=== PATIENT | male | born 1960 | race African-American/Black ===

== ENCOUNTER 2019-03-23 14:30 | Inpatient (IN) ==
[2019-03-23] MEDS ORDERED: VANCOMYCIN INJ 1,500 MG in SODIUM CHLORIDE 0.9% 250 ML IV STA (15:10)
[2019-03-23 15:44] LABS: Basophils % 0.4 % (0.0-0.8); Eosinophils % 0.4 % (0.00-10.9); Hematocrit 41.1 VOL% (42.0-52.0); Immature Granulocytes % 0.5 %; Immature Granulocytes Absolute 0.05 #; Lymphocytes # 1.7 10*3/uL (1.4-4.0); Lymphocytes % 17.3 % (21.2-54.2); Mean Corpuscular HGB Conc 31.6 GM/DL (32-36); Mean Corpuscular Volume 85.1 FL (87-102); Mean Platelet Volume 10.8 FL (9.6-12.0); Monocytes % 7.8 % (1.7-12.7); Neutrophils % 73.6 % (38.7-73.9); Platelet Count 236 T/CUMM (130-400); Red Blood Count 4.83 MC/CUMM (3.8-5.5); Red Cell Distribution Width 13.5 % (9.3-17.3); White Blood Count 9.8 T/CUMM (4-12)
[2019-03-23 16:02] LABS: Apearance,Urine CLEAR (Clear); Bilirubin,Urine Negative (Negative); Blood, Urine Negative (Negative); Glucose,Urine (UA) Negative (Negative); Ketones,Urine Negative (Negative); Mucus,Urine Occasional /LPF (Occasional); Nitrite,Urine Negative (Negative); Protein,Urine >=500 MG/DL; RBC,Urine 1 /HPF (0-4); Squamous Epithelial Cell,Urine Occasional /HPF (0-10); Urine Color Yellow (Yellow); Urine Specific Gravity 1.014 (1.001-1.035); Urine Urobilinogen < 2.0 EU/DL (0.2-1.0); WBC,Urine 1 /HPF (0-6)
[2019-03-23] MEDS ORDERED: GLUCAGON 1 MG VIAL IM PRN (16:11)
[2019-03-23] MEDS ORDERED: DEXTROSE 10% 250 ML BAG IV PRN (16:11)
[2019-03-23] MEDS ORDERED: ONDANSETRON 4 MG/2 ML VIAL IV PRN (16:11)
[2019-03-23 16:19] LABS: Albumin 3.3 G/DL (3.4-5.0); Bilirubin,Total 1.3 MG/DL (0.2-1.0); Calcium 8.8 MG/DL (8.5-10.1); Total Protein 8.1 G/DL (6.4-8.3)
[2019-03-23] MEDS ORDERED: HYDROmorphone 2 MG/1 ML VIAL IV STA (17:12)
[2019-03-23] MEDS ORDERED: hydrALAZINE 20 MG/1 ML VIAL IV STA (17:13)
[2019-03-23] MEDS: SODIUM CHLORIDE 0.9% 1,000 ML IV SCH (17:30)
[2019-03-23] MEDS: INSULIN LISPRO 100 UNIT/ML SUBCUT SCH ×2 (18:38→21:00)
[2019-03-23] MEDS: ENOXAPARIN 40 MG/0.4 ML SYRINGE SUBCUT SCH (20:42)
[2019-03-24] MEDS: SODIUM CHLORIDE 0.9% 1,000 ML IV SCH (04:31)
[2019-03-24 06:14] LABS: Basophils % 0.3 % (0.0-0.8); Eosinophils % 0.7 % (0.00-10.9); Hemoglobin 11.4 GM/DL (14.0-18.0); Immature Granulocytes % 0.3 %; Immature Granulocytes Absolute 0.02 #; Lymphocytes # 1.1 10*3/uL (1.4-4.0); Lymphocytes % 18.3 % (21.2-54.2); Mean Corpuscular HGB Conc 31.7 GM/DL (32-36); Mean Corpuscular Volume 85.5 FL (87-102); Mean Platelet Volume 11.3 FL (9.6-12.0); Monocytes % 11.6 % (1.7-12.7); Neutrophils % 68.8 % (38.7-73.9); Platelet Count 195 T/CUMM (130-400); Red Blood Count 4.21 MC/CUMM (3.8-5.5); Red Cell Distribution Width 13.5 % (9.3-17.3); White Blood Count 6.1 T/CUMM (4-12)
[2019-03-24 06:45] LABS: Albumin 2.6 G/DL (3.4-5.0); Bilirubin,Total 0.9 MG/DL (0.2-1.0); Calcium 8.3 MG/DL (8.5-10.1); Osmolality,Calculated 297.4 MOS/KG (273-304); Risk Ratio 3.11; Thyroid Stimulating Hormone 1.96 uIU/ml (0.358-3.74); Total Protein 6.6 G/DL (6.4-8.3); VLDL CHOLESTEROL 27.4 MG/DL
[2019-03-24] MEDS ORDERED: PANTOPRAZOLE 40 MG TABLET PO SCH (09:00)
[2019-03-24] MEDS: INSULIN LISPRO 100 UNIT/ML SUBCUT SCH ×4 (09:08→20:41)
[2019-03-24] MEDS ORDERED: SKIN HEALING OINT (AQUAPHOR) 50 GM TUBE TOP PRN (14:16)
[2019-03-24] MEDS: cefTRIAXone 2,000 MG in SYRINGE 1 EACH IV SCH ×2 (18:02→18:13)
[2019-03-24] MEDS: VANCOMYCIN INJ 1,500 MG in SODIUM CHLORIDE 0.9% 500 ML IV SCH (18:02)
[2019-03-24] MEDS: carvediloL 6.25 MG TABLET PO SCH (20:39)
[2019-03-24] MEDS: SODIUM CHLORIDE 0.45% 1,000 ML IV SCH (20:39)
[2019-03-24] MEDS: ROSUVASTATIN 20 MG TABLET PO SCH (20:40)
[2019-03-24] MEDS: ENOXAPARIN 40 MG/0.4 ML SYRINGE SUBCUT SCH (20:40)
[2019-03-24] MEDS: PREGABALIN 100 MG CAPSULE PO PRN (20:40)
[2019-03-24] MEDS: INSULIN GLARGINE 100 UNIT/ML SUBCUT SCH (20:41)
[2019-03-25] MEDS: carvediloL 6.25 MG TABLET PO SCH ×2 (05:47→12:16)
[2019-03-25] MEDS: GLIMEPIRIDE 4 MG TABLET PO SCH ×2 (05:47→12:16)
[2019-03-25] MEDS: ALLOPURINOL 100 MG TABLET PO SCH (05:47)
[2019-03-25] MEDS: amLODIPine 5 MG TABLET PO SCH (05:47)
[2019-03-25] MEDS: PANTOPRAZOLE 40 MG TABLET PO SCH (05:47)
[2019-03-25] MEDS: SODIUM CHLORIDE 0.45% 1,000 ML IV SCH ×2 (05:47→17:20)
[2019-03-25 06:34] LABS: Basophils % 0.2 % (0.0-0.8); Eosinophils # 0.1 10*3/uL (0.0-0.87); Hematocrit 36.8 VOL% (42.0-52.0); Hemoglobin 11.5 GM/DL (14.0-18.0); Immature Granulocytes % 0.5 %; Immature Granulocytes Absolute 0.03 #; Lymphocytes # 1.1 10*3/uL (1.4-4.0); Lymphocytes % 18.8 % (21.2-54.2); Mean Corpuscular HGB Conc 31.3 GM/DL (32-36); Mean Platelet Volume 10.3 FL (9.6-12.0); Monocytes % 9.8 % (1.7-12.7); Neutrophils % 68.7 % (38.7-73.9); Platelet Count 190 T/CUMM (130-400); Red Blood Count 4.28 MC/CUMM (3.8-5.5); Red Cell Distribution Width 13.3 % (9.3-17.3); White Blood Count 5.9 T/CUMM (4-12)
[2019-03-25 06:57] LABS: Albumin 2.4 G/DL (3.4-5.0); Bilirubin,Total 0.9 MG/DL (0.2-1.0); Calcium 8.4 MG/DL (8.5-10.1); Osmolality,Calculated 286.5 MOS/KG (273-304); Total Protein 6.7 G/DL (6.4-8.3)
[2019-03-25] MEDS: INSULIN GLARGINE 100 UNIT/ML SUBCUT SCH ×2 (09:34→21:02)
[2019-03-25] MEDS: INSULIN LISPRO 100 UNIT/ML SUBCUT SCH ×4 (09:34→21:01)
[2019-03-25] MEDS: VANCOMYCIN INJ 1,500 MG in SODIUM CHLORIDE 0.9% 500 ML IV SCH (14:41)
[2019-03-25] MEDS: cefTRIAXone 2,000 MG in SYRINGE 1 EACH IV SCH (17:10)
[2019-03-25] MEDS: ENOXAPARIN 40 MG/0.4 ML SYRINGE SUBCUT SCH (21:01)
[2019-03-25] MEDS: PREGABALIN 100 MG CAPSULE PO PRN (21:03)
[2019-03-25] MEDS: ROSUVASTATIN 20 MG TABLET PO SCH (21:03)
[2019-03-26 05:05] LABS: Basophils % 0.5 % (0.0-0.8); Eosinophils # 0.2 10*3/uL (0.0-0.87); Eosinophils % 3.6 % (0.00-10.9); Hematocrit 35.4 VOL% (42.0-52.0); Immature Granulocytes % 0.2 %; Immature Granulocytes Absolute 0.01 #; Lymphocytes # 1.1 10*3/uL (1.4-4.0); Lymphocytes % 26.4 % (21.2-54.2); Mean Corpuscular HGB Conc 31.1 GM/DL (32-36); Mean Corpuscular Volume 85.5 FL (87-102); Mean Platelet Volume 11.7 FL (9.6-12.0); Monocytes % 10.3 % (1.7-12.7); Platelet Count 208 T/CUMM (130-400); Red Blood Count 4.14 MC/CUMM (3.8-5.5); Red Cell Distribution Width 13.3 % (9.3-17.3); White Blood Count 4.2 T/CUMM (4-12)
[2019-03-26] MEDS: amLODIPine 5 MG TABLET PO SCH (05:25)
[2019-03-26] MEDS: PANTOPRAZOLE 40 MG TABLET PO SCH (05:25)
[2019-03-26] MEDS: SODIUM CHLORIDE 0.45% 1,000 ML IV SCH ×2 (05:25→08:58)
[2019-03-26] MEDS: carvediloL 6.25 MG TABLET PO SCH (05:25)
[2019-03-26] MEDS: ALLOPURINOL 100 MG TABLET PO SCH (05:25)
[2019-03-26] MEDS: GLIMEPIRIDE 4 MG TABLET PO SCH (05:26)
[2019-03-26 05:37] LABS: Albumin 2.4 G/DL (3.4-5.0); Bilirubin,Total 0.8 MG/DL (0.2-1.0); Calcium 8.2 MG/DL (8.5-10.1); Osmolality,Calculated 284.7 MOS/KG (273-304); Total Protein 6.4 G/DL (6.4-8.3)
[2019-03-26] MEDS: INSULIN GLARGINE 100 UNIT/ML SUBCUT SCH (08:57)
[2019-03-26] MEDS: INSULIN LISPRO 100 UNIT/ML SUBCUT SCH ×2 (08:58→11:32)
[2019-03-26 09:51] VITALS: BP 173/78
== END 2019-03-26 12:20 | disposition home or self-care (01) | DRG 603 ==
LOC: N.ED 14:30 → SUATTDRO 16:11 → N.EDINP 16:11 → N.5E 17:13
PROVIDERS: ADMIT Internal Medicine; ATTEND Internal Medicine

== ENCOUNTER 2020-03-23 21:59 | Inpatient (IN) ==
[2020-03-23] MEDS ORDERED: DEXTROSE 10% 250 ML BAG IV ONE (22:00)
[2020-03-23] MEDS ORDERED: DEXTROSE 50% 25 GM/50 ML SYRINGE IV ONE (22:00)
[2020-03-23] MEDS ORDERED: DEXTROSE 50% 25 GM/50 ML SYRINGE IV STA (22:25)
[2020-03-23] MEDS ORDERED: SODIUM CHLORIDE 0.9% 1,000 ML IV STA (22:25)
[2020-03-23 22:32] LABS: Basophils % 0.2 % (0.0-0.8); Eosinophils % 0.2 % (0.00-10.9); Hematocrit 32.3 VOL% (42.0-52.0); Hemoglobin 9.9 GM/DL (14.0-18.0); Immature Granulocytes % 0.5 %; Immature Granulocytes Absolute 0.02 #; Lymphocytes # 0.8 10*3/uL (1.4-4.0); Lymphocytes % 20.7 % (21.2-54.2); Mean Corpuscular HGB Conc 30.7 GM/DL (32-36); Mean Corpuscular Volume 80.8 FL (87-102); Monocytes % 4.2 % (1.7-12.7); Neutrophils % 74.2 % (38.7-73.9); Platelet Count 250 T/CUMM (130-400); Red Cell Distribution Width 15.8 % (9.3-17.3); White Blood Count 4.1 T/CUMM (4-12)
[2020-03-23] MEDS ORDERED: ROCURONIUM 100 MG/10 ML VIAL IV ONE (22:50)
[2020-03-23] MEDS ORDERED: ETOMIDATE 20 MG/10 ML VIAL IV ONE (22:50)
[2020-03-23 22:52] LABS: INR 1.2; PT Patient Result 12.3 SECS (9.8-11.9); Partial Thromboplastin Time 33.7 SECS (23.9-33.8)
[2020-03-23 22:58] LABS: ABG Base Excess -9.1 MMOL/L (-2.5-2.5); ABG HCO3 17.1 MMOL/L (20-26); ABG Oxygen Saturation 99.4 % (95-100); ABG PCO2 41.6 MM HG (35-48); ABG TCO2 16.8 MMOL/L (23-27)
[2020-03-23 23:00] LABS: Barbiturates Screen,Urine Negative (Negative); Benzodiazepines Screen,Urine Negative (Negative); Cannabinoid Screen,Urine Negative (Negative); Opiate Screen,Urine Positive (Negative); Phencyclidine Screen,Urine Negative (Negative)
[2020-03-23 23:03] LABS: Albumin 2.6 G/DL (3.4-5.0); Bilirubin,Total 0.4 MG/DL (0.2-1.0); Ferritin 106.4 ng/ml (26-388); Total Protein 7.3 G/DL (6.4-8.3)
[2020-03-23 23:05] LABS: Bilirubin,Urine Negative (Negative); Blood, Urine Small mg/dL (Negative); Glucose,Urine (UA) Negative (Negative); Ketones,Urine Negative (Negative); Mucus,Urine Occasional /LPF (Occasional); Nitrite,Urine Negative (Negative); Protein,Urine 100 MG/DL; Urine Appearance CLOUDY (Clear); Urine Color Yellow (Yellow); Urine Specific Gravity 1.013 (1.001-1.035); Urine Urobilinogen < 2.0 EU/DL (0.2-1.0)
[2020-03-24] MEDS ORDERED: LEVOFLOXACIN INJ 500 MG in PREMIX 1 EACH IV STA (00:13)
[2020-03-24] MEDS ORDERED: ATROPINE 1 MG/10 ML SYRINGE IV STA (00:44)
[2020-03-24] MEDS ORDERED: ATROPINE 0.4 MG/1 ML VIAL ONE (00:50)
[2020-03-24] MEDS ORDERED: MORPHINE 4 MG/1 ML VIAL IV PRN (02:41)
[2020-03-24] MEDS ORDERED: ALBUTEROL 2.5 MG/3 ML NEB RESP TX PRN (02:41)
[2020-03-24] MEDS ORDERED: DEXTROSE 5% NACL 0.9% 1,000 ML IV SCH (03:00)
[2020-03-24 04:23] LABS: Basophils % 0.2 % (0.0-0.8); Hematocrit 29.1 VOL% (42.0-52.0); Hemoglobin 9.1 GM/DL (14.0-18.0); Immature Granulocytes % 0.7 %; Immature Granulocytes Absolute 0.03 #; Lymphocytes # 0.5 10*3/uL (1.4-4.0); Lymphocytes % 10.9 % (21.2-54.2); Mean Corpuscular HGB Conc 31.3 GM/DL (32-36); Mean Corpuscular Volume 80.4 FL (87-102); Mean Platelet Volume 11.9 FL (9.6-12.0); Monocytes % 8.2 % (1.7-12.7); Platelet Count 207 T/CUMM (130-400); Red Blood Count 3.62 MC/CUMM (3.8-5.5); Red Cell Distribution Width 15.9 % (9.3-17.3); White Blood Count 4.5 T/CUMM (4-12)
[2020-03-24 04:33] LABS: ABG Base Excess -8.4 MMOL/L (-2.5-2.5); ABG HCO3 18.4 MMOL/L (20-26); ABG Oxygen Saturation 98.9 % (95-100); ABG PCO2 43.8 MM HG (35-48); ABG PH 7.242 (7.35-7.45); ABG PO2 220.4 MM HG (80-95); ABG TCO2 19.8 MMOL/L (23-27); Allen Test Positive; Pt O2 Delivery Device Ventilator
[2020-03-24] MEDS: HYDROCORTISONE 100 MG VIAL IV SCH ×4 (04:44→19:53)
[2020-03-24 04:47] LABS: Alanine Aminotransferase 22 U/L (16-61); Albumin 2.2 G/DL (3.4-5.0); Alkaline Phosphatase 89 U/L (45-117); Aspartate Amino Transferase 68 U/L (0-37); Blood Urea Nitrogen 78 MG/DL (7-18); Calcium 6.7 MG/DL (8.5-10.1); Estimated Glom Filtration Rate 19 ML/MIN; Glucose 105 MG/DL (74-106); Osmolality,Calculated 305.1 MOS/KG (273-304); Total Protein 6.9 G/DL (6.4-8.3); Troponin I < 0.015 NG/ML (0.00-0.045)
[2020-03-24] MEDS ORDERED: SODIUM BICARB INJ 100 MEQ in DEXTROSE 5% 1,000 ML IV SCH (07:30)
[2020-03-24] MEDS ORDERED: INSULIN REGULAR 100 UNIT/ML SUBCUT SCH (08:00)
[2020-03-24] MEDS ORDERED: DEXTROSE 50% 25 GM/50 ML VIAL IV ONE (08:20)
[2020-03-24] MEDS ORDERED: DEXTROSE 50% 25 GM/50 ML VIAL IV PRN (08:37)
[2020-03-24] MEDS ORDERED: GLUCAGON 1 MG VIAL IM PRN (08:38)
[2020-03-24] MEDS: ENOXAPARIN 30 MG/0.3 ML SYRINGE SUBCUT SCH (08:59)
[2020-03-24] MEDS: PANTOPRAZOLE 40 MG VIAL IV SCH (09:00)
[2020-03-24] MEDS: ceFAZolin 1,000 MG in SYRINGE 1 EACH IV SCH ×3 (09:05→19:53)
[2020-03-24] MEDS ORDERED: CALCIUM GLUCONATE 1,000 MG in SODIUM CHLORIDE 0.9% 100 ML IV ONE (10:54)
[2020-03-24] MEDS ORDERED: SODIUM CHLORIDE 0.9% 1,000 ML IV ONE (11:20)
[2020-03-24] MEDS ORDERED: SODIUM POLYSTYRENE SULFATE 15 GM/60 ML BOTTLE PO ONE (11:24)
[2020-03-24] MEDS ORDERED: ALBUTEROL 2.5 MG/3 ML NEB RESP TX ONE (11:24)
[2020-03-24] MEDS ORDERED: INSULIN REGULAR 100 UNIT/ML SUBCUT PRN (12:00)
[2020-03-24] MEDS: DEXTROSE 5% NACL 0.9% 1,000 ML IV SCH ×2 (13:42→21:43)
[2020-03-24] MEDS: DEXMEDETOMIDINE 200 MCG in SODIUM CHLORIDE 0.9% 48 ML IV PRN ×2 (16:18→22:26)
[2020-03-25] MEDS: ceFAZolin 1,000 MG in SYRINGE 1 EACH IV SCH ×4 (01:56→20:32)
[2020-03-25] MEDS: HYDROCORTISONE 100 MG VIAL IV SCH ×4 (01:57→20:33)
[2020-03-25] MEDS: DEXTROSE 5% NACL 0.9% 1,000 ML IV SCH ×2 (05:59→10:05)
[2020-03-25] MEDS: DEXMEDETOMIDINE 200 MCG in SODIUM CHLORIDE 0.9% 48 ML IV PRN (05:59)
[2020-03-25 06:39] LABS: Hematocrit 29.6 VOL% (42.0-52.0); Hemoglobin 9.2 GM/DL (14.0-18.0); Immature Granulocytes Absolute 0.06 #; Lymphocytes # 0.5 10*3/uL (1.4-4.0); Lymphocytes % 9.2 % (21.2-54.2); Mean Corpuscular HGB Conc 31.1 GM/DL (32-36); Mean Platelet Volume 11.1 FL (9.6-12.0); Monocytes % 7.2 % (1.7-12.7); NRBC # 0.03 10*3/uL; Neutrophils % 82.6 % (38.7-73.9); Platelet Count 200 T/CUMM (130-400); Red Cell Distribution Width 16.3 % (9.3-17.3); White Blood Count 5.9 T/CUMM (4-12)
[2020-03-25 07:01] LABS: Calcium 6.8 MG/DL (8.5-10.1); Osmolality,Calculated 307.8 MOS/KG (273-304)
[2020-03-25] MEDS: PANTOPRAZOLE 40 MG VIAL IV SCH (08:05)
[2020-03-25] MEDS: ENOXAPARIN 30 MG/0.3 ML SYRINGE SUBCUT SCH (08:11)
[2020-03-25] MEDS ORDERED: HYDROCORTISONE 100 MG VIAL IV ONE (08:30)
[2020-03-25] MEDS ORDERED: INFLUENZA VIRUS VACCINE 0.5 ML SYRINGE IM ONE (09:00)
[2020-03-25] MEDS: fentaNYL INJ 1,250 MCG in SODIUM CHLORIDE 0.9% 225 ML IV PRN ×2 (10:02→22:59)
[2020-03-25] MEDS ORDERED: FUROSEMIDE 40 MG/4 ML VIAL IV ONE (10:54)
[2020-03-25] MEDS: DEXMEDETOMIDINE 400 MCG in SODIUM CHLORIDE 0.9% 96 ML IV PRN (12:15)
[2020-03-25] MEDS: INSULIN REGULAR 100 UNIT/ML SUBCUT SCH ×3 (12:38→20:33)
[2020-03-25] MEDS: amLODIPine 10 MG TABLET PER TUBE SCH (12:43)
[2020-03-26] MEDS: INSULIN REGULAR 100 UNIT/ML SUBCUT SCH ×6 (00:25→20:52)
[2020-03-26] MEDS: ceFAZolin 1,000 MG in SYRINGE 1 EACH IV SCH ×4 (01:24→20:09)
[2020-03-26] MEDS: DEXMEDETOMIDINE 400 MCG in SODIUM CHLORIDE 0.9% 96 ML IV PRN (02:26)
[2020-03-26 02:53] LABS: ABG Base Excess -3.4 MMOL/L (-2.5-2.5); ABG HCO3 21.6 MMOL/L (20-26); ABG Oxygen Saturation 97.7 % (95-100); ABG PCO2 33.3 MM HG (35-48); ABG PH 7.402 (7.35-7.45); ABG TCO2 18.9 MMOL/L (23-27); Allen Test Positive; Pt O2 Delivery Device Ventilator
[2020-03-26] MEDS: hydrALAZINE 20 MG/1 ML VIAL IV PRN ×3 (03:16→23:06)
[2020-03-26] MEDS: HYDROCORTISONE 100 MG VIAL IV SCH ×4 (03:16→20:52)
[2020-03-26] MEDS: fentaNYL INJ 1,250 MCG in SODIUM CHLORIDE 0.9% 225 ML IV PRN ×3 (04:29→20:10)
[2020-03-26 06:04] LABS: Hematocrit 32.2 VOL% (42.0-52.0); Hemoglobin 9.9 GM/DL (14.0-18.0); Immature Granulocytes % 0.6 %; Immature Granulocytes Absolute 0.04 #; Lymphocytes # 0.9 10*3/uL (1.4-4.0); Lymphocytes % 13.6 % (21.2-54.2); Mean Corpuscular HGB Conc 30.7 GM/DL (32-36); Mean Corpuscular Volume 80.3 FL (87-102); Mean Platelet Volume 10.7 FL (9.6-12.0); Monocytes % 8.7 % (1.7-12.7); Neutrophils % 77.1 % (38.7-73.9); Platelet Count 222 T/CUMM (130-400); Red Blood Count 4.01 MC/CUMM (3.8-5.5); Red Cell Distribution Width 16.3 % (9.3-17.3); White Blood Count 6.4 T/CUMM (4-12)
[2020-03-26 06:27] LABS: Osmolality,Calculated 316.3 MOS/KG (273-304)
[2020-03-26 06:28] LABS: Osmolality,Calculated 315.3 MOS/KG (273-304)
[2020-03-26 06:47] LABS: Uric Acid 7.7 MG/DL (3.5-7.2)
[2020-03-26] MEDS: ENOXAPARIN 30 MG/0.3 ML SYRINGE SUBCUT SCH (08:03)
[2020-03-26] MEDS: amLODIPine 10 MG TABLET PER TUBE SCH (08:03)
[2020-03-26] MEDS: PANTOPRAZOLE 40 MG VIAL IV SCH (08:03)
[2020-03-26] MEDS: DEXTROSE 5% NACL 0.9% 1,000 ML IV SCH (12:47)
[2020-03-27] MEDS: INSULIN REGULAR 100 UNIT/ML SUBCUT SCH ×7 (00:50→23:59)
[2020-03-27] MEDS: ceFAZolin 1,000 MG in SYRINGE 1 EACH IV SCH ×4 (00:53→20:18)
[2020-03-27] MEDS: fentaNYL INJ 1,250 MCG in SODIUM CHLORIDE 0.9% 225 ML IV PRN ×4 (01:16→19:11)
[2020-03-27 03:20] LABS: Basophils % 0.2 % (0.0-0.8); Hematocrit 31.6 VOL% (42.0-52.0); Hemoglobin 9.5 GM/DL (14.0-18.0); Immature Granulocytes % 0.5 %; Immature Granulocytes Absolute 0.03 #; Lymphocytes # 0.6 10*3/uL (1.4-4.0); Lymphocytes % 10.1 % (21.2-54.2); Mean Corpuscular HGB Conc 30.1 GM/DL (32-36); Mean Corpuscular Volume 82.7 FL (87-102); Mean Platelet Volume 10.2 FL (9.6-12.0); Monocytes % 6.2 % (1.7-12.7); Platelet Count 190 T/CUMM (130-400); Red Blood Count 3.82 MC/CUMM (3.8-5.5); Red Cell Distribution Width 16.5 % (9.3-17.3); White Blood Count 5.6 T/CUMM (4-12)
[2020-03-27] MEDS: HYDROCORTISONE 100 MG VIAL IV SCH ×2 (03:21→16:58)
[2020-03-27 03:34] LABS: Calcium 6.9 MG/DL (8.5-10.1); Osmolality,Calculated 329.9 MOS/KG (273-304)
[2020-03-27 05:11] LABS: ABG Base Excess -3.9 MMOL/L (-2.5-2.5); ABG HCO3 21.2 MMOL/L (20-26); ABG Oxygen Saturation 97.2 % (95-100); ABG PCO2 39.1 MM HG (35-48); ABG PH 7.346 (7.35-7.45); ABG PO2 98.2 MM HG (80-95); ABG TCO2 19.6 MMOL/L (23-27)
[2020-03-27 05:26] VITALS: BP 169/74
[2020-03-27] MEDS: cloNIDine 0.1 MG TABLET PER TUBE SCH ×3 (08:29→20:18)
[2020-03-27] MEDS: amLODIPine 10 MG TABLET PER TUBE SCH (08:29)
[2020-03-27] MEDS: ENOXAPARIN 30 MG/0.3 ML SYRINGE SUBCUT SCH (08:29)
[2020-03-27] MEDS: PANTOPRAZOLE 40 MG VIAL IV SCH (08:30)
[2020-03-27] MEDS: DEXTROSE 5% NACL 0.9% 1,000 ML IV SCH (11:14)
[2020-03-27] MEDS: DEXMEDETOMIDINE 400 MCG in SODIUM CHLORIDE 0.9% 96 ML IV PRN ×2 (16:59)
[2020-03-28] MEDS: hydrALAZINE 20 MG/1 ML VIAL IV PRN ×2 (00:09→09:10)
[2020-03-28] MEDS: ceFAZolin 1,000 MG in SYRINGE 1 EACH IV SCH ×4 (02:15→20:32)
[2020-03-28] MEDS: HYDROCORTISONE 100 MG VIAL IV SCH (02:18)
[2020-03-28] MEDS: INSULIN REGULAR 100 UNIT/ML SUBCUT SCH ×4 (04:30→20:27)
[2020-03-28 04:47] LABS: ABG Base Excess -4.1 MMOL/L (-2.5-2.5); ABG HCO3 20.9 MMOL/L (20-26); ABG Oxygen Saturation 96.8 % (95-100); ABG PH 7.359 (7.35-7.45); ABG TCO2 22.1 MMOL/L (23-27); Allen Test Positive; Pt O2 Delivery Device Ventilator
[2020-03-28] MEDS: fentaNYL INJ 1,250 MCG in SODIUM CHLORIDE 0.9% 225 ML IV PRN (04:50)
[2020-03-28 05:54] LABS: Basophils % 0.2 % (0.0-0.8); Eosinophils # 0.1 10*3/uL (0.0-0.87); Eosinophils % 1.2 % (0.00-10.9); Hematocrit 33.6 VOL% (42.0-52.0); Hemoglobin 10.2 GM/DL (14.0-18.0); Immature Granulocytes % 0.7 %; Immature Granulocytes Absolute 0.04 #; Lymphocytes # 0.8 10*3/uL (1.4-4.0); Lymphocytes % 13.2 % (21.2-54.2); Mean Corpuscular HGB Conc 30.4 GM/DL (32-36); Mean Corpuscular Volume 83.2 FL (87-102); Monocytes % 8.1 % (1.7-12.7); Neutrophils % 76.6 % (38.7-73.9); Platelet Count 215 T/CUMM (130-400); Red Blood Count 4.04 MC/CUMM (3.8-5.5); Red Cell Distribution Width 16.4 % (9.3-17.3); White Blood Count 5.9 T/CUMM (4-12)
[2020-03-28 06:16] LABS: Calcium 7.3 MG/DL (8.5-10.1); Osmolality,Calculated 333.7 MOS/KG (273-304)
[2020-03-28] MEDS: HYDROCORTISONE 10 MG TABLET PER TUBE SCH ×2 (09:10→20:32)
[2020-03-28] MEDS: ENOXAPARIN 30 MG/0.3 ML SYRINGE SUBCUT SCH (09:10)
[2020-03-28] MEDS: PANTOPRAZOLE 40 MG VIAL IV SCH (09:10)
[2020-03-28] MEDS: amLODIPine 10 MG TABLET PER TUBE SCH (09:10)
[2020-03-28] MEDS: DEXMEDETOMIDINE 400 MCG in SODIUM CHLORIDE 0.9% 96 ML IV PRN (12:00)
[2020-03-29] MEDS: hydrALAZINE 20 MG/1 ML VIAL IV PRN (00:28)
[2020-03-29] MEDS: INSULIN REGULAR 100 UNIT/ML SUBCUT SCH ×5 (00:28→20:29)
[2020-03-29] MEDS: fentaNYL INJ 1,250 MCG in SODIUM CHLORIDE 0.9% 225 ML IV PRN (00:29)
[2020-03-29] MEDS: ceFAZolin 1,000 MG in SYRINGE 1 EACH IV SCH ×4 (02:41→20:29)
[2020-03-29 03:37] LABS: Basophils % 0.5 % (0.0-0.8); Eosinophils # 0.2 10*3/uL (0.0-0.87); Eosinophils % 3.7 % (0.00-10.9); Hematocrit 33.4 VOL% (42.0-52.0); Hemoglobin 10.1 GM/DL (14.0-18.0); Immature Granulocytes % 0.5 %; Immature Granulocytes Absolute 0.02 #; Lymphocytes # 0.8 10*3/uL (1.4-4.0); Lymphocytes % 18.1 % (21.2-54.2); Mean Corpuscular HGB Conc 30.2 GM/DL (32-36); Mean Corpuscular Volume 83.1 FL (87-102); Mean Platelet Volume 10.8 FL (9.6-12.0); Monocytes % 9.4 % (1.7-12.7); Neutrophils % 67.8 % (38.7-73.9); Platelet Count 167 T/CUMM (130-400); Red Blood Count 4.02 MC/CUMM (3.8-5.5); Red Cell Distribution Width 16.5 % (9.3-17.3); White Blood Count 4.4 T/CUMM (4-12)
[2020-03-29 03:52] LABS: Calcium 7.6 MG/DL (8.5-10.1); Osmolality,Calculated 335.9 MOS/KG (273-304)
[2020-03-29] MEDS ORDERED: hydrALAZINE 20 MG/1 ML VIAL IV ONE (04:06)
[2020-03-29 04:39] LABS: Allen Test Positive; Pt O2 Delivery Device Ventilator
[2020-03-29 04:41] LABS: ABG Base Excess -2.1 MMOL/L (-2.5-2.5); ABG HCO3 22.3 MMOL/L (20-26); ABG Oxygen Saturation 97.2 % (95-100); ABG PCO2 36.6 MM HG (35-48); ABG PH 7.403 (7.35-7.45); ABG PO2 107.6 MM HG (80-95); ABG TCO2 23.4 MMOL/L (23-27)
[2020-03-29] MEDS: amLODIPine 10 MG TABLET PER TUBE SCH (09:00)
[2020-03-29] MEDS: HYDROCORTISONE 10 MG TABLET PER TUBE SCH ×2 (09:00→20:30)
[2020-03-29] MEDS: PANTOPRAZOLE 40 MG VIAL IV SCH (09:00)
[2020-03-29] MEDS: ENOXAPARIN 30 MG/0.3 ML SYRINGE SUBCUT SCH (09:00)
[2020-03-29] MEDS: SODIUM CHLORIDE 0.45% 1,000 ML IV SCH ×2 (10:50→20:36)
[2020-03-29] MEDS: METOCLOPRAMIDE 10 MG/2 ML VIAL IV SCH ×3 (11:24→23:53)
[2020-03-29] MEDS ORDERED: INSULIN REGULAR 100 UNIT/ML SUBCUT SCH ×2 (12:00→14:00)
[2020-03-29] MEDS ORDERED: INSULIN GLARGINE 100 UNIT/ML SUBCUT SCH (21:00)
[2020-03-30] MEDS: INSULIN REGULAR 100 UNIT/ML SUBCUT SCH ×8 (00:01→23:52)
[2020-03-30] MEDS: ceFAZolin 1,000 MG in SYRINGE 1 EACH IV SCH ×4 (03:42→18:33)
[2020-03-30 03:45] LABS: ABG Base Excess -0.8 MMOL/L (-2.5-2.5); ABG HCO3 23.7 MMOL/L (20-26); ABG Oxygen Saturation 93.2 % (95-100); ABG PCO2 36.7 MM HG (35-48); ABG PH 7.413 (7.35-7.45); ABG PO2 68.1 MM HG (80-95); ABG TCO2 21.6 MMOL/L (23-27)
[2020-03-30 04:33] LABS: Basophils % 0.4 % (0.0-0.8); Eosinophils # 0.1 10*3/uL (0.0-0.87); Eosinophils % 2.2 % (0.00-10.9); Hematocrit 32.5 VOL% (42.0-52.0); Immature Granulocytes % 0.4 %; Immature Granulocytes Absolute 0.02 #; Lymphocytes # 0.9 10*3/uL (1.4-4.0); Lymphocytes % 16.7 % (21.2-54.2); Mean Corpuscular HGB Conc 29.8 GM/DL (32-36); Mean Corpuscular Volume 83.3 FL (87-102); Monocytes % 9.4 % (1.7-12.7); Neutrophils % 70.9 % (38.7-73.9); Platelet Count 186 T/CUMM (130-400); Red Cell Distribution Width 16.4 % (9.3-17.3); White Blood Count 5.4 T/CUMM (4-12)
[2020-03-30 04:34] LABS: Hemoglobin 9.7 GM/DL (14.0-18.0)
[2020-03-30 04:40] LABS: Hypochromasia 1+; Microcytosis 1+; Platelet Estimate Adequate
[2020-03-30 04:43] LABS: Calcium 7.8 MG/DL (8.5-10.1); Osmolality,Calculated 329.1 MOS/KG (273-304)
[2020-03-30] MEDS: METOCLOPRAMIDE 10 MG/2 ML VIAL IV SCH ×4 (06:22→23:50)
[2020-03-30] MEDS: SODIUM CHLORIDE 0.45% 1,000 ML IV SCH ×2 (06:22→16:20)
[2020-03-30] MEDS: HYDROCORTISONE 10 MG TABLET PER TUBE SCH ×2 (08:55→20:21)
[2020-03-30] MEDS: amLODIPine 10 MG TABLET PER TUBE SCH (08:55)
[2020-03-30] MEDS: ENOXAPARIN 30 MG/0.3 ML SYRINGE SUBCUT SCH (08:55)
[2020-03-30] MEDS: PANTOPRAZOLE 40 MG VIAL IV SCH (08:56)
[2020-03-30] MEDS: INSULIN GLARGINE 100 UNIT/ML SUBCUT SCH (20:21)
[2020-03-30] MEDS: hydrALAZINE 20 MG/1 ML VIAL IV PRN (20:26)
[2020-03-30] MEDS ORDERED: fentaNYL 100 MCG/2 ML VIAL IV ONE (22:08)
[2020-03-31] MEDS: ceFAZolin 1,000 MG in SYRINGE 1 EACH IV SCH ×4 (01:43→20:42)
[2020-03-31 03:28] LABS: Allen Test Positive; Pt O2 Delivery Device Ventilator
[2020-03-31 03:30] LABS: ABG Base Excess -2.7 MMOL/L (-2.5-2.5); ABG HCO3 22.1 MMOL/L (20-26); ABG Oxygen Saturation 96.9 % (95-100); ABG PCO2 36.9 MM HG (35-48); ABG PH 7.383 (7.35-7.45); ABG PO2 90.1 MM HG (80-95); ABG TCO2 20.3 MMOL/L (23-27)
[2020-03-31] MEDS: SODIUM CHLORIDE 0.45% 1,000 ML IV SCH (04:01)
[2020-03-31] MEDS: INSULIN REGULAR 100 UNIT/ML SUBCUT SCH ×6 (04:07→23:37)
[2020-03-31] MEDS: hydrALAZINE 20 MG/1 ML VIAL IV PRN ×2 (04:07→22:03)
[2020-03-31] MEDS ORDERED: fentaNYL 100 MCG/2 ML VIAL IV ONE (05:22)
[2020-03-31] MEDS: METOCLOPRAMIDE 10 MG/2 ML VIAL IV SCH ×4 (05:48→23:37)
[2020-03-31 05:58] LABS: Basophils % 0.3 % (0.0-0.8); Eosinophils # 0.2 10*3/uL (0.0-0.87); Eosinophils % 3.4 % (0.00-10.9); Hematocrit 32.1 VOL% (42.0-52.0); Hemoglobin 9.4 GM/DL (14.0-18.0); Immature Granulocytes % 0.5 %; Immature Granulocytes Absolute 0.03 #; Lymphocytes % 15.7 % (21.2-54.2); Mean Corpuscular HGB Conc 29.3 GM/DL (32-36); Mean Corpuscular Volume 83.8 FL (87-102); Mean Platelet Volume 11.5 FL (9.6-12.0); Monocytes % 8.7 % (1.7-12.7); Neutrophils % 71.4 % (38.7-73.9); Platelet Count 173 T/CUMM (130-400); Red Blood Count 3.83 MC/CUMM (3.8-5.5); Red Cell Distribution Width 16.1 % (9.3-17.3); White Blood Count 6.5 T/CUMM (4-12)
[2020-03-31 06:15] LABS: Calcium 7.9 MG/DL (8.5-10.1); Osmolality,Calculated 328.6 MOS/KG (273-304)
[2020-03-31] MEDS: HYDROCORTISONE 10 MG TABLET PER TUBE SCH (08:03)
[2020-03-31] MEDS: ENOXAPARIN 30 MG/0.3 ML SYRINGE SUBCUT SCH (08:03)
[2020-03-31] MEDS: PANTOPRAZOLE 40 MG VIAL IV SCH (08:03)
[2020-03-31] MEDS: amLODIPine 10 MG TABLET PER TUBE SCH (08:05)
[2020-03-31 11:28] LABS: ABG Base Excess -2.9 MMOL/L (-2.5-2.5); ABG Oxygen Saturation 96.8 % (95-100); ABG PCO2 36.7 MM HG (35-48); ABG PH 7.381 (7.35-7.45); ABG PO2 89.2 MM HG (80-95); ABG TCO2 19.9 MMOL/L (23-27); Pt O2 Delivery Device Ventilator
[2020-03-31] MEDS: INSULIN GLARGINE 100 UNIT/ML SUBCUT SCH (20:43)
[2020-04-01] MEDS: ceFAZolin 1,000 MG in SYRINGE 1 EACH IV SCH ×2 (01:46→08:21)
[2020-04-01] MEDS: INSULIN REGULAR 100 UNIT/ML SUBCUT SCH ×5 (04:01→20:27)
[2020-04-01 04:12] LABS: ABG Base Excess -2.3 MMOL/L (-2.5-2.5); ABG HCO3 22.6 MMOL/L (20-26); ABG Oxygen Saturation 97.6 % (95-100); ABG PCO2 39.3 MM HG (35-48); ABG PH 7.377 (7.35-7.45); ABG TCO2 23.8 MMOL/L (23-27); Allen Test Positive; Pt O2 Delivery Device Ventilator
[2020-04-01] MEDS: METOCLOPRAMIDE 10 MG/2 ML VIAL IV SCH ×3 (06:09→18:29)
[2020-04-01 07:51] LABS: Calcium 8.6 MG/DL (8.5-10.1); Osmolality,Calculated 325.4 MOS/KG (273-304)
[2020-04-01] MEDS: PANTOPRAZOLE 40 MG VIAL IV SCH (08:20)
[2020-04-01] MEDS: ENOXAPARIN 30 MG/0.3 ML SYRINGE SUBCUT SCH (08:20)
[2020-04-01] MEDS: amLODIPine 10 MG TABLET PER TUBE SCH (08:22)
[2020-04-01] MEDS: hydrALAZINE 20 MG/1 ML VIAL IV PRN (15:06)
[2020-04-01] MEDS ORDERED: MORPHINE 4 MG/1 ML VIAL IV ONE (15:11)
[2020-04-01] MEDS ORDERED: MORPHINE 4 MG/1 ML VIAL ONE (15:13)
[2020-04-01] MEDS: MENTHOL/ZINC OXIDE OINT 71 GM JAR TOP SCH ×2 (16:50→21:09)
[2020-04-01] MEDS ORDERED: INSULIN GLARGINE 100 UNIT/ML SUBCUT SCH (21:00)
[2020-04-02] MEDS: METOCLOPRAMIDE 10 MG/2 ML VIAL IV SCH ×3 (00:06→12:07)
[2020-04-02] MEDS: INSULIN REGULAR 100 UNIT/ML SUBCUT SCH ×5 (00:09→15:55)
[2020-04-02 04:28] LABS: Allen Test Positive; Pt O2 Delivery Device Ventilator
[2020-04-02 04:29] LABS: ABG Base Excess -0.7 MMOL/L (-2.5-2.5); ABG HCO3 23.8 MMOL/L (20-26); ABG Oxygen Saturation 95.8 % (95-100); ABG PCO2 41.2 MM HG (35-48); ABG PH 7.379 (7.35-7.45); ABG PO2 82.3 MM HG (80-95); ABG TCO2 22.6 MMOL/L (23-27)
[2020-04-02 05:22] LABS: Basophils % 0.2 % (0.0-0.8); Eosinophils # 0.2 10*3/uL (0.0-0.87); Eosinophils % 4.3 % (0.00-10.9); Hematocrit 29.7 VOL% (42.0-52.0); Hemoglobin 8.6 GM/DL (14.0-18.0); Immature Granulocytes % 0.2 %; Immature Granulocytes Absolute 0.01 #; Lymphocytes # 0.9 10*3/uL (1.4-4.0); Lymphocytes % 20.8 % (21.2-54.2); Mean Corpuscular Volume 84.1 FL (87-102); Monocytes % 10.6 % (1.7-12.7); Neutrophils % 63.9 % (38.7-73.9); Platelet Count 199 T/CUMM (130-400); Red Blood Count 3.53 MC/CUMM (3.8-5.5); Red Cell Distribution Width 15.8 % (9.3-17.3); White Blood Count 4.4 T/CUMM (4-12)
[2020-04-02 05:43] LABS: Calcium 8.1 MG/DL (8.5-10.1); Osmolality,Calculated 326.1 MOS/KG (273-304)
[2020-04-02] MEDS: amLODIPine 10 MG TABLET PER TUBE SCH (08:18)
[2020-04-02] MEDS: ENOXAPARIN 30 MG/0.3 ML SYRINGE SUBCUT SCH (08:19)
[2020-04-02] MEDS: MENTHOL/ZINC OXIDE OINT 71 GM JAR TOP SCH (08:19)
[2020-04-02] MEDS: PANTOPRAZOLE 40 MG VIAL IV SCH (08:19)
[2020-04-02] MEDS ORDERED: INFLUENZA VIRUS VACCINE 0.5 ML SYRINGE IM ONE (11:00)
== END 2020-04-02 16:45 | DRG 637 ==
LOC: EDUNIT# → EDBD → N.ED 21:59 → N.EDINP 03-24 02:18 → SUATTDRO 03-24 02:18 → N.ICU 03-24 02:47
PROVIDERS: ADMIT Internal Medicine; ATTEND Internal Medicine